=== PATIENT | female | born 1995 | race Caucasian/White ===

== ENCOUNTER 2017-04-05 10:28 | Emergency (ER) | payer MEDICAID ==
[~2017-04-05 10:28] MED LIST: DERMOPLAST SPRA56 GM TP; IRON325 M1 PO; LAN-O-SOOTHE7 GM TP; MOTRIN-DPS800 MG PO; NIPPLECREAM TP; PRENATAL VIT1 TAB PO; PROZAC DPS20 MG PO; TYLENOL #3 DPS1 TAB PO; WELLBUTRIN SR150 M1 PO; ZOFRAN4 MG PO
--- NOTE | 2017-04-15 07:02 | ER ---
ADMIT: 04/05/2017 RM/LOC: ER [facility] MR#: [id number] [address] [id number] ALLIE ALLEN [address] [place] [address] Emergency Room Report SEX: F AGE: 21 : 1995 DATE: 04/05/2017 ADDENDUM: CHIEF COMPLAINT: Dental pain. HISTORY OF PRESENT ILLNESS: This is a 21-year-old who has already multiple teeth that have been pulled. She is having some pain over her sixth tooth. There was a dental injection done. CLINICAL IMPRESSION: Tooth abscess. DISPOSITION: Send her home with amoxicillin, having her take Motrin, Tylenol for pain and follow up with a dentist as soon as possible. ZAIDA Li / Enzo Mathur MD / ghada JOB #: [id number] CC: Enzo Mathur MD, Attending Physician Bernabe Claire MD, Family Physician
== END 2017-04-05 11:39 | disposition home or self-care (01) ==
LOC: ER 10:28
PROC: 3E0T3BZ Introduction of Anesthetic Agent into Peripheral Nerves and Plexi, Percutaneous Approach (ICD-10-PCS; principal; 2017-04-05)
DX: K04.7 Periapical abscess without sinus (principal); F90.9 Attention-deficit hyperactivity disorder, unspecified type; F32.9 Major depressive disorder, single episode, unspecified; F17.210 Nicotine dependence, cigarettes, uncomplicated; Z79.899 Other long term (current) drug therapy